=== PATIENT | female | born 1980 | race African-American/Black ===

== ENCOUNTER 2024-09-03 16:36 | Emergency (ER) | payer OTHER ==
[~2024-09-03] VITALS: Ht 167.6 cm; Wt 74.0 kg
[2024-09-03 16:42] VITALS: O2SAT 98
[2024-09-03] MEDS: IBUPROFEN 800MG TABLET PO ONE (20:54)
[2024-09-03] MEDS: ACETAMINOPHEN 500MG TABLET PO ONE (20:55)
[2024-09-03 21:02] VITALS: BP 139/90; PULSE 88; RESP 18; TEMP 36.7; O2SAT 98
== END 2024-09-03 21:03 | disposition home or self-care (01) ==
LOC: ER 16:36
DX: M54.50 Low back pain, unspecified (principal); V89.2XXA Person injured in unspecified motor-vehicle accident, traffic, initial encounter; Y93.89 Activity, other specified; Y92.410 Unspecified street and highway as the place of occurrence of the external cause; Y99.8 Other external cause status
CPT/HCPCS: 99283